=== PATIENT | female | born 1985 | race Two or more races ===

== ENCOUNTER 2022-08-13 13:01 | Emergency (ER) | payer OTHER ==
[~2022-08-13] VITALS: Ht 160 cm; Wt 48.1 kg
[2022-08-13 13:10] VITALS: BP 103/74
--- NOTE | 2022-08-13 13:11 | NUR ---
bibs w/ c/o bilat eye discomfort, reccurent eye infection x3 months. on erythromycin ointment since wednesday but no relief per pt. to er bed 16.
== END 2022-08-13 14:34 | disposition home or self-care (01) ==
LOC: ER 13:09
DX: H01.006 Unspecified blepharitis left eye, unspecified eyelid (principal); H00.015 Hordeolum externum left lower eyelid; H00.012 Hordeolum externum right lower eyelid